=== PATIENT | female | born 1995 | race Caucasian/White ===

== ENCOUNTER 2023-07-18 11:27 | Day surgery (SDC) | payer OTHER ==
[~2023-07-18] VITALS: Ht 167.6 cm; Wt 62.6 kg
[2023-07-18] MEDS ORDERED: fentaNYL citrate 0.05 MG/ML VIAL ONE (13:08)
[2023-07-18] MEDS: fentaNYL citrate 0.05 MG/ML VIAL IVP ONE (13:50)
== END 2023-07-18 14:50 | disposition home or self-care (01) ==
LOC: MDS 11:27 → MMU 11:44 → MDS 14:50
PROVIDERS: ATTEND Internal Medicine Gastroenterology
DX: R19.7 Diarrhea, unspecified (principal); F17.210 Nicotine dependence, cigarettes, uncomplicated; J45.909 Unspecified asthma, uncomplicated; Z79.899 Other long term (current) drug therapy; Z98.890 Other specified postprocedural states
CPT/HCPCS: 36415; 45380; 84702; 88305; J3010